=== PATIENT | female | born 1970 | race Two or more races ===

== ENCOUNTER → 2019-01-10 | Outpatient (CLI) | payer BC ==
--- NOTE | 2019-01-11 12:10 | RAD ---
DATE: 01/10/2019 3:18 PM EXAM: DIGITAL SCREEN BILAT W/CAD HISTORY: Screening COMPARISON: November 07, 2017 and January 08, 2015 Bilateral CC and MLO views of the breasts were performed. This study was interpreted with the benefit of Computerized Aided Detection (CAD). FINDINGS: Breast Density: HETERO The breast parenchyma Is heterogeneously dense, which could reduce sensitivity of mammography. Breast parenchyma level C No suspicious masses, microcalcifications or architectural distortion is present to suggest malignancy in either breast. The visualized axillae are unremarkable. IMPRESSION: No mammographic evidence of malignancy. BI-RADS CATEGORY: 1 NEGATIVE RECOMMENDED FOLLOW-UP: 12M 12 MONTH FOLLOW-UP Annual screening mammography is recommended, unless clinically indicated sooner based on symptoms or change in physical exam. PQRS compliance statement: Patient information was entered into a reminder system with a target due date one year for the next mammogram. Mammography is a sensitive method for finding small breast cancers, but it does not detect them all and is not a substitute for careful clinical examination. A negative mammogram does not negate a clinically suspicious finding and should not result in delay in biopsying a clinically suspicious abnormality. "Our facility is accredited by the [employer] Mammography [employer]."
== END | disposition home or self-care (01) ==
LOC: MAMMO 15:16
PROVIDERS: ATTEND Family Medicine
DX: Z12.31 Encounter for screening mammogram for malignant neoplasm of breast (principal)
CPT/HCPCS: 77067

== ENCOUNTER → 2020-01-06 | Outpatient (CLI) | payer BC ==
--- NOTE | 2020-01-06 14:35 | RAD ---
BILATERAL SCREENING MAMMOGRAM History: Routine screening. Comparison: 12/19/2012, 01/02/2014, 01/08/2015, 10/30/2017, 01/10/2019. Technique: Routine bilateral digital mammogram views were obtained. Findings: Breast Tissue Density C : The breasts are heterogeneously dense, which may obscure small masses. There are no dominant masses, suspicious microcalcifications, or architectural distortion. IMPRESSION: No mammographic evidence of malignancy. Recommend routine screening. BI-RADS category 1: Negative. The images were reviewed with computer aided detection. Patient information is entered into the reminder system with a target due date for the next screening mammogram. Mammography is the most sensitive method for finding small breast cancers, but it does not detect them all and is not a substitute for careful clinical examination. A negative mammogram does not negate a clinically suspicious finding and should not result in delay in biopsying a clinically suspicious abnormality. "Our facility is accredited by the [employer] Mammography [employer]." Electronically signed by: Ronald Christianson MD (01/06/2020 2:32 PM) [id number]
== END ==
LOC: MAMMO 14:04
PROVIDERS: ATTEND Family Medicine
DX: Z12.31 Encounter for screening mammogram for malignant neoplasm of breast (principal)
CPT/HCPCS: 77067

== ENCOUNTER → 2020-09-18 | Outpatient (CLI) | payer BC ==
--- NOTE | 2020-09-18 18:20 | RAD ---
INDICATION: Reason: LEFT KNEE PAIN. / Spl. Instructions: / History: COMPARISON: None. IMPRESSION: Left knee: 3 views obtained. Chondrocalcinosis is identified at the medial greater than lateral nilda rtment. Mild degenerative changes with joint space narrowing and early osteophyte formation. No defin ite acute fracture or dislocation. Edema in Hoffa's fat pad. Electronically signed by: Shar Costa MD (09/18/2020 6:17 PM) [id number]
== END ==
LOC: RAD 15:43
PROVIDERS: ATTEND Family Medicine
DX: M17.12 Unilateral primary osteoarthritis, left knee (principal); M11.262 Other chondrocalcinosis, left knee; M25.762 Osteophyte, left knee
CPT/HCPCS: 73562

== ENCOUNTER → 2021-02-03 | Outpatient (CLI) | payer BC ==
--- NOTE | 2021-02-03 13:12 | RAD ---
INDICATION: 50 years of age asymptomatic female patient presents for screening mammography. TECHNIQUE: Full field craniocaudal and mediolateral oblique images of both breasts were obtained usi ng digital technique with tomosynthesis and also analyzed with computer-aided detection software. COMPARISON: Prior mammographic imaging dating 01/10/2019 12/08/2017 01/06/2020 BREAST COMPOSITION: Category C: The breast tissue is heterogeneously dense, which could obscure detec tion of small masses. FINDINGS: Benign calcifications are present. The parenchymal pattern appears stable. Small irregular nodular opacities are seen in the medial right breast, posterior depth, approximately 10 cm the nipple. No suspicious masses, microcalcifications or architectural distortion is present to suggest malignanc y in the left breast. The visualized axillae are unremarkable. IMPRESSION: Right breast mass, findings for which additional imaging is advised. RECOMMENDATION: The patient will be contacted to return for additional imaging and a supplemental rep ort will follow. BIRADS 0: INCOMPLETE - NEED ADDITIONAL IMAGING EVALUATION AND/OR PRIOR MAMMOGRAMS FOR COMPARISON. This study was interpreted with the benefit of Computerized Aided Detection (CAD). ?Your patient's mammogram demonstrates that she has dense breast tissue (breast density category C or D), which could hide abnormalities, and if she has other risk factors for breast cancer that have be en identified, she might benefit from supplemental screening tests that may be suggested by you as he r ordering physician. Dense breast tissue, in and of itself, is a relatively common condition. Theref ore, this information is not provided to cause undue concern, but rather to raise your awareness and to promote discussion with your patient regarding the presence of other risk factors, in addition to dense breast tissue. Your patient's mammography results will be sent to her. Patient information is entered into the reminder system with a target due date for the next screening mammogram. Mammography is the most sensitive method for finding small breast cancers, but it does not detect the m all and is not a substitute for careful clinical examination. A negative mammogram does not negate a clinically suspicious finding and should not result in delay in biopsying a clinically suspicious a bnormality. "Our facility is accredited by the [employer] Mammography [employer]." Electronically signed by: Octavio Gasca MD (02/03/2021 1:09 PM) [id number]
== END ==
LOC: MAMMO 09:04
PROVIDERS: ATTEND Family Medicine
DX: Z12.31 Encounter for screening mammogram for malignant neoplasm of breast (principal)
CPT/HCPCS: 77063; 77067

== ENCOUNTER → 2021-03-10 | Outpatient (CLI) | payer BC ==
--- NOTE | 2021-03-10 13:40 | RAD ---
EXAM: Right breast diagnostic mammogram with tomosynthesis; right breast sonogram. HISTORY: 50-year-old female presents for reduction of asymmetry within the right breast demonstrated on a screening mammogram dated 02/03/2021. TECHNIQUE: Full-field digital true lateral 2D and 3D tomosynthesis images and spot compression images of the right breast are obtained. Sonographic imaging of the right breast targeted to the region of mammographic abnormality was also performed. COMPARISON: 02/03/2021, 01/06/2020, 01/10/2019 BREAST PARENCHYMAL DENSITY: Level C - Heterogeneously dense. FINDINGS: The asymmetry of concern within the posterior medial right breast appears to change configu ration between projections and with spot compression. This favors an island of fibroglandular tissue with fibrocystic changes. There is no suspicious calcification or architectural distortion. Sonographic imaging of the right breast demonstrates multiple small hypoechoic lesions at the 2:00 to 3:00 position, the largest of which measures 9 mm at the 2:00 position 10 cm from the nipple. These are not associated with posterior shadowing or internal blood flow. The imaging appearance favors a b enign fibrocystic etiology. IMPRESSION: 1. Suspected region of focal fibrocystic change with superimposed small fibrocystic lesions measuring up to 10 mm within the posterior 2:00 to 3:00 position of the right breast. 2. BI-RADS Category 3: Probably benign finding(s). Precautionary short term follow up with a diagnost ic right breast mammogram and sonogram in 6 months is recommended. If your mammogram demonstrates that you have dense breast tissue, which could hide abnormalities, and if you have other risk factors for breast cancer that have been identified, you might benefit from s upplemental screening tests that may be suggested by your ordering physician. Dense breast tissue, i n and of itself, is a relatively common condition. This information is not provided to cause undue c oncern, but rather to raise your awareness and to promote discussion with your physician regarding th e presence of other risk factors, in addition to dense breast tissue. A report of your mammography re sults will be sent to you and your physician. You should contact your physician if you have any ques tions or concerns regarding this report. Mammography is a sensitive method for finding small breast cancers, but it does not detect them all a nd is not a substitute for careful clinical examination. A negative mammogram does not negate a clin ically suspicious finding and should not result in delay in biopsying a clinically suspicious abnorma lity. PQRS compliance statement - Patient information was entered into a reminder system with a target due date for the next mammogram. "Our facility is accredited by the [employer]amm[employer]." Electronically signed by: Kacie Jarvis MD (03/10/2021 1:38 PM) [id number]
== END ==
LOC: MAMMO 12:47
PROVIDERS: ATTEND Family Medicine
DX: N64.89 Other specified disorders of breast (principal); R92.8 Other abnormal and inconclusive findings on diagnostic imaging of breast
CPT/HCPCS: 76641; 77065